=== PATIENT | male | born 1980 | race Caucasian/White ===

== ENCOUNTER 2022-11-22 18:33 | Emergency (ER) | payer OTHER ==
[~2022-11-22] VITALS: Ht 165.1 cm; Wt 72.7 kg
[2022-11-22 18:46] VITALS: BP 123/70
[2022-11-22] MEDS ORDERED: APIX5TAB PO (18:49)
[2022-11-22] MEDS ORDERED: GABA-1181 PO (18:49)
[2022-11-22] MEDS ORDERED: AMLO-258 PO (18:49)
[2022-11-22] MEDS ORDERED: LISI20TA24 PO (18:49)
[2022-11-22] MEDS ORDERED: ALEN70TA65 PO (18:49)
[2022-11-22] MEDS ORDERED: CYCL-448 PO (18:49)
[2022-11-22] MEDS ORDERED: CITA10TA99 PO (18:49)
[2022-11-22] MEDS ORDERED: LIDOCAINE 1% 10 ML VIAL SQ ONE (20:00)
[2022-11-22] MEDS ORDERED: PERTUSS(ACELL),DIPH,TET VAC/PF 0.5 ML SYRINGE IM. ONE (20:30)
[2022-11-22] MEDS ORDERED: BACITRACIN 28 GM OINTMENT TP ONE (20:30)
== END 2022-11-22 21:05 | disposition home or self-care (01) ==
LOC: EMS 18:35
DX: S61.210A Laceration without foreign body of right index finger without damage to nail, initial encounter (principal); F41.9 Anxiety disorder, unspecified; I10 Essential (primary) hypertension; Z98.890 Other specified postprocedural states; W25.XXXA Contact with sharp glass, initial encounter; Y93.G1 Activity, food preparation and clean up; Y92.89 Other specified places as the place of occurrence of the external cause; Y99.8 Other external cause status
CPT/HCPCS: 99283; 90715; 90471; 12002; J3490